=== PATIENT | male | born 1975 | race Caucasian/White ===

== ENCOUNTER 2017-06-22 15:38 | Emergency (ER) | payer OTHER ==
[~2017-06-22] VITALS: Ht 182.9 cm; Wt 90.9 kg
[2017-06-22 15:54] VITALS: BP 136/95; PULSE 71; RESP 18; TEMP 98.5; O2SAT 100
--- NOTE | 2017-06-22 17:29 | PD ---
HPI Chief Complaint: Lump, Cyst, Hernia Time Seen by Provider: 17:28 Travel History International Travel<30 days: No Contact w/Intl Traveler<30days: No Traveled to known affect area: No History of Present Illness HPI 42-year-old male came to the emergency room with history of right-sided inguinal hernia that has been going on for past 6 years. Patient has been in an unfortunate circumstance where he has not been able to get a surgeon to fix it. Today he is here since he thinks that this hernia should be fixed since it has constantly grown to a large size. He has been having some issues with it including unable to eat well. Patient says that he has not eaten well in past 6 days and has vomited few times. However upon asking he said his last vomit was 3 days ago. Since then he has eaten little quantities of food frequently and has been able to keep them down. This is his third visit to the emergency room has per the patient for the hernia. He has been asked to follow-up with surgeon during his past visit. However he has been unable to pay for a surgery and hence one has not been done yet. Patient is very upset with the circumstance and wants a surgery done this time. His vital signs are completely stable. Patient does not appear to be in any distress. He also told me that he has passed out couple times at work. Patient is a smoker and has not seen a physician besides coming to the emergency room in many years. PFSH Past Medical History Narrative Medical List of his past medical, surgical, social, family history is reviewed from the nursing note. Blood Disorders: No Cancer: No Cardiovascular Problems: No Diminished Hearing: No Endocrine: No Genitourinary: No Immune Disorder: No Musculoskeletal: Yes (LS FX POST TRAUMA DISC 2,3 ,S1) Neurologic: No Reproductive: No Respiratory: No Past Surgical History Neurologic Surgery: Yes (Back) Pacemaker: No Other Surgery: No Social History Alcohol Use: Yes Tobacco Use: Yes Substance Use: No Allergies-Medications (Allergen,Severity, Reaction): Coded Allergies: codeine (Unverified Allergy, Severe, 11/04/16) PT STATES ALLERGY FROM CHILDHOOD. UNKNOWN REACTION Comments List of his allergies reviewed from the nursing note. Reported Meds & Prescriptions Reported Meds & Active Scripts Active Lactulose Liq (Lactulose) 10 Gm/15 Ml Soln 30 Ml PO Q6H PRN 30 Days Narrative Medication List of his home medications reviewed from the nursing note. Review of Systems Except as stated in HPI: all other systems reviewed are Neg Gastrointestinal: Positive: Nausea, Vomiting Physical Exam Narrative GENERAL: Awake, alert, no obvious distress SKIN: Focused skin assessment warm/dry. HEAD: Atraumatic. Normocephalic. EYES: Pupils equal and round. No scleral icterus. No injection or drainage. ENT: No nasal bleeding or discharge. Mucous membranes pink and moist. NECK: Trachea midline. No JVD. CARDIOVASCULAR: Regular rate and rhythm. No murmur appreciated. RESPIRATORY: No accessory muscle use. Clear to auscultation. Breath sounds equal bilaterally. GASTROINTESTINAL: Abdomen soft, non-tender, nondistended. Hepatic and splenic margins not palpable. : Right-sided large inguinal hernia/hydrocele, dimensions of approximately 8 x 7 cm, minimally tender, firm and cystic in consistency MUSCULOSKELETAL: No obvious deformities. No clubbing. No cyanosis. No edema. NEUROLOGICAL: Awake and alert. No obvious cranial nerve deficits. Motor grossly within normal limits. Normal speech. PSYCHIATRIC: Appropriate mood and affect; insight and judgment normal. Data Data Last Documented VS Vital Signs Date Time Temp Pulse Resp B/P (MAP) Pulse Ox O2 Delivery O2 Flow Rate FiO2 06/22/17 18:21 06/22/17 18:01 72 17 98 Room Air 06/22/17 15:54 98.5 Orders Orders Mandatory Outpatient Referral (06/22/17 18:08) Ed Discharge Order (06/22/17 18:09) [facility] Medical Decision Making Medical Screen Exam Complete: Yes Emergency Medical Condition: Yes Medical Record Reviewed: Yes Differential Diagnosis Hernia, hydrocele Narrative Course 6:05 PM patient has had this hernia for many years. His vital signs are completely stable. He has been tolerating p.o. for past 3 days even though in small quantities. In my opinion this hernia is not incarcerated. Patient is not presenting like an incarcerated hernia. I am comfortable discharging him home. Patient was unhappy with this decision since he once again wanted to be admitted and had surgery done. My recommendation would be to get a surgeon outpatient and follow-up and schedule an elective surgery. Procedures EKG Prior to Arrival: No Diagnosis Primary Impression: Inguinal hernia Qualified Codes: K40.90 - Unilateral inguinal hernia, without obstruction or gangrene, not specified as recurrent Referrals: Gerry Guerra MD 1 week Additional Instructions: Follow-up with the general surgeon whose name and number been provided to you in this discharge instruction. You will be given a mandatory referral which would allow you to have at least one visit with the surgeon. You hernia will need to be repaired electively unless there is sudden severe pain onset with vomiting which could be incarceration. In that case she will need to return to the emergency room. Do not lift heavy weight. Try to get scrotal support and wear them during the day time when you are at work. Take the medication as per the prescription direction. Med/Other Pt SpecificInfo: Prescription(s) given Scripts Lactulose Liq (Lactulose Liq) 10 Gm/15 Ml Soln 30 ML PO Q6H Y for constipation for 30 Days, #3600 ML 0 Refills Prov: Danielle Proctor MD 06/22/17 Disposition: 01 DISCHARGE HOME Condition: Stable Danielle Proctor MD Jun 22, 2017 17:29
[2017-06-22 18:01] VITALS: BP 137/81; PULSE 72; RESP 17; O2SAT 98
[2017-06-22] MEDS ORDERED: LACT10SO PO (18:08)
== END 2017-06-22 18:26 | disposition home or self-care (01) ==
LOC: NED 15:38 → NEPD 18:26
DX: K40.90 Unilateral inguinal hernia, without obstruction or gangrene, not specified as recurrent (principal); Z72.0 Tobacco use
CPT/HCPCS: 99281

== ENCOUNTER → 2017-07-27 | Day surgery (SDC) | payer SELFPAY ==
[~2017-07-27] MED LIST: BUPIVACAINE/EPINEPHRINE 0.5% PF 10 ML VIAL ONE; KETOROLAC TROMETHAMINE 30 MG/ML (IVP) VIAL IV PUSH ONE; LACT10SO PO; LACTATED RINGER'S 1000 ML INJ 1,000 ML ONE; MIDAZOLAM HCL 2 MG/2 ML VIAL ONE; MORPHINE SULFATE 4 MG/ML INJ ONE; ONDANSETRON HCL 4 MG/2 ML VIAL IV PUSH ONE; PROPOFOL 200 MG/20 ML AMP IV ONE; ceFAZolin 2 GM PREMIX 50 ML ONE; oxyCODONE/ACETAMINOPHEN 5 MG/325 MG TAB ONE
--- NOTE | 2017-07-29 17:25 | MP ---
cc: Gerry Guerra MD DATE OF OPERATION: 07/27/2017 PREOPERATIVE DIAGNOSIS: Large right inguinal hernia. POSTOPERATIVE DIAGNOSIS: Large right inguinal hernia. PROCEDURE PERFORMED: Open right inguinal hernia repair with mesh. SURGEON: Dr. Gerry Guerra. GENERAL MANAGER IN TRAINING: Dr. Maycol Grayson ANESTHESIA: GETA. IV FLUIDS: See anesthesia sheet. ESTIMATED BLOOD LOSS: 5 mL DRAINS: None. COMPLICATIONS: None. WOUND CLASSIFICATION: Clean. SPECIMENS: None. FINDINGS: A very large defect of the right inguinal hernia. Good hemostasis. Indirect hernia defect. INDICATIONS FOR PROCEDURE: The patient is a 42-year-old male who presents with a longstanding right inguinal hernia. The patient notes the hernia has continued to increase in size and get worse and noted the hernia to be herniation down to the testicle with a very large hernia. The patient decided to undergo operative intervention. Discussed with the patient in detail. DETAILS OF PROCEDURE: The patient was taken back to the operating suite, placed in supine position. He was prepped and draped in the usual sterile fashion after induction of general endotracheal anesthesia. Brief timeout and stating correct patient, procedure, surgical site, were all in agreement with this. Attention first directed to the right groin area, again noted to be a very large right inguinal hernia. The hernia was manually reduced back into the abdomen and commencement of surgery was done. The incision was made in an oblique fashion, 6 cm in length, after palpation of the ASIS and pubic tubercle were identified on palpating landmarks. Further dissection was done with Bovie electrocautery down to the external fascia. A small liseth incision was made on the external fascia. Metzenbaum scissors were used to incise the external fascia in the direction of its fibers. This was done to the external ring. Note, to protect and identify the ilioinguinal nerve. Hemostats used to grasp the leaves of the external fascia and a Kitner were used to clear off adhesions and mobilized the sac and the cord structures. Once the pubic tubercle was identified, the sac and cord structures were mobilized in order posteriorly to create a window. The Yasmeen drain was used in order to manipulate and gain control of the cord structures and hernia sac. After meticulous dissection of the hernia sac off the cord structures, this was done with a Bovie cautery and DeBakey forceps. The sac was noted to be extremely large. The sac was twisted and then ligated with 0 Vicryl tie. This was then reduced back into the abdomen. The sac was discarded. The 3 x 6 mesh was obtained, a nonabsorbable mesh and 0 Ethibonds were obtained as well. Pubic tubercles palpated and anchored. Suture was placed at the tip of the mesh, after it was cut to appropriate tapering size. The sutures were done interrupted on the conjoined tendon medially and then laterally on the shelving edge. The mesh noted to fit securely in place. The back of the mesh was cut intermediate longitudinal in order to facilitate the cord structures and recreating the internal ring. The leaflets were cut smaller size and overlapped in order to again facilitate internal ring. Once this was done, the external oblique was closed with a 3-0 Vicryl in a running fashion. The wound was closed in layers, including a 3-0 Vicryl and then 4-0 Monocryl used for skin incision. Steri-Strips were then placed and Mastisol. Local anesthetic injected at the incision site. The patient tolerated procedure well. There were no intraoperative complications. All lap and instrument counts were correct at the end of procedure The patient was extubated and taken stable to the PACU. The testicle was reduced back into the scrotum and sat comfortably. MD MADAY Puentes/MICHEAL , 04:51 PM , 05:23 PM
== END | disposition home or self-care (01) ==
LOC: ESDC 06:21
PROVIDERS: ATTEND Surgery
DX: K40.90 Unilateral inguinal hernia, without obstruction or gangrene, not specified as recurrent (principal)
CPT/HCPCS: 00830; 49505; C1781; J0690; J1885; J2250; J2270; J2405; J3010; J7120